=== PATIENT | male | born 1990 | race African-American/Black ===

== ENCOUNTER 2023-01-17 20:26 | Emergency (ER) | payer MEDICAID, SELFPAY ==
--- NOTE | ~2023-01-17 | XR_ITS ---
Clinical Indication: Chest pain PA and lateral views of the chest: Comparison: None Findings: The lungs are clear, without evidence of focal consolidation or pleural effusion. Cardiome diastinal silhouette is within normal limits. Bones and soft tissues are unremarkable. Impression: Normal chest. Reviewed, dictated and finalized at location . Impression: Normal chest.
--- NOTE | 2023-01-17 20:29 | ECG_ITS ---
Measurements Intervals [place] Rate: 58 P: 70 [place]: 214 QRS: 71 QRSD: 87 T: 50 QT: 361 QTc: 357 Interpretive Statements SINUS BRADYCARDIA WITH FIRST DEGREE AV BLOCK BORDERLINE ECG NO PREVIOUS ECG AVAILABLE FOR COMPARISON Electronically Signed On 01-17-2023 20:44:31 CDT by Angel Luis Robbins D.O.
[2023-01-17 20:34] VITALS: BP 123/76; PULSE 63; RESP 16; TEMP 36.6; O2SAT 100
[2023-01-17 20:44] LABS: Basophils Percent Auto 0.4 % (0.2-1.2); Eosinophils Percent Auto 0.4 % (0-4.4); Hematocrit 39.8 % (42.0-52.0); Hemoglobin 13.9 g/dL (14.0-18.0); Lymphocytes Absolute Auto 2.08 K/mm3 (0.9-3.2); Lymphocytes Percent Auto 46.5 % (18.3-44.2); Mean Corpuscular HGB Conc 34.9 g/dl (32-36); Mean Corpuscular Hemoglobin 30.5 pg (26-34); Mean Corpuscular Volume 87.3 fl (80-100); Mean Platelet Volume 9.1 fl (7.4-10.4); Monocytes Absolute Auto 0.4 K/mm3 (0.1-0.6); Monocytes Percent Auto 8.1 % (2.6-8.5); Neutrophils Percent Auto 44.6 % (45.5-73.1); Platelet Count Result 225 k/mm3 (150-375); Red Blood Count 4.56 M/mm3 (4.6-6.20); Red Cell Distribution Width 11.8 % (11.5-14.5); White Blood Count 4.5 K/mm3 (4.5-10.0)
[2023-01-17 20:53] LABS: Alanine Aminotransferase 20 U/L (6-50); Albumin Level 4.8 g/dL (3.5-5.1); Alkaline Phosphatase 41 U/L (38-126); Anion Gap 7 mmol/L (8-16); Aspartate Amino Transferase 26 U/L (17-59); Bilirubin,Total 0.6 mg/dL (0.2-1.3); Blood Urea Nitrogen 11 mg/dL (9-20); Calcium 9.2 mg/dL (8.4-10.2); Carbon Dioxide 28 mmol/L (22-30); Chloride 101 mmol/L (98-107); Estimated CRCL calculation 93 ml/min; Estimated Glomerular Filt Rate > 60; Glucose 102 mg/dL (65-110); INR 1.1; Lipase 80 U/L (23-300); Prothrombin Time 14.1 Seconds (11.1-14.7); Sodium 136 mmol/L (137-145)
[2023-01-17 20:54] LABS: Partial Thromboplastin Time 26.8 SECONDS (22.3-36.8)
[2023-01-17 21:05] LABS: Troponin I < 0.012 ng/mL (0.000-0.034)
--- NOTE | 2023-01-17 23:51 | ED.SYNCOPE ---
HPI - Syncope General Chief Complaint: Syncope Stated Complaint: lightheaded and dizzy episodes. Time Seen by Provider: 01/17/23 23:37 History of Present Illness HPI narrative: Patient is a 32-year-old male here for evaluation of multiple medical complaints. Notes that over the past 3 months after his long-term relationship ended abruptly he has had numerous episodes of lightheadedness, abdominal numbness, feeling off , numbness and tingling in his extremities. He has presented to numerous outside hospitals for these complaints and was admitted to hospital in [place] for several days where he had cardiac testing, CT brain and MRI. He reported that these have been reassuring, and the only abnormality that they have found is a first-degree AV block on his ECG. Patient is not having any chest pain or syncope. He has never been told that he has had anxiety in the past. No nausea or vomiting. Related Data Allergies Allergy/AdvReac Type Severity Reaction Status Date / Time No Known Allergies Allergy Verified 01/17/23 20:26 Review of Systems Review of Systems: All systems reviewed & are unremarkable except as noted in HPI and below Exam Narrative: APPEARANCE: Well appearing, no pain in distress, well-nourished. Head: Normocephalic and atraumatic. EYES: PERRLA/EOMI, conjunctivae clear NOSE: No nasal drainage EARS: External ear normal in appearance THROAT: Oropharynx is clear. Mucous membranes are moist. NECK: Supple. No adenopathy, no masses. RESPIRATORY: Airway patent, respirations nonlabored. Clear to auscultation bilaterally, no rales, rhonchi, wheezing. CARDIOVASCULAR: Regular rate and rhythm without murmurs, rubs, or gallops. ABDOMINAL: Normoactive bowel sounds. Soft, nontender, nondistended. No rebound tenderness or guarding. MUSCULOSKELETAL: Extremities are warm and well-perfused. Moves all extremities well. No edema. NEURO: Normal speech. No focal neurologic deficits. SKIN: Skin is warm and dry. No rashes. PSYCHIATRIC: Normal affect/mood. Course Vital Signs Vital signs: Vital Signs Temperature 97.8 F 01/17/23 20:34 Pulse Rate 63 01/17/23 20:34 Respiratory Rate 16 01/17/23 20:34 Blood Pressure 123/76 01/17/23 20:34 Pulse Oximetry 100 01/17/23 20:34 Oxygen Delivery Room Air 01/17/23 20:34 Temperature 98 F 01/18/23 01:24 Pulse Rate 55 L 01/18/23 01:24 Respiratory Rate 20 01/18/23 01:24 Blood Pressure 123/79 01/18/23 01:24 Pulse Oximetry 99 01/18/23 01:24 Oxygen Delivery Room Air 01/17/23 20:34 MDM - Syncope MDM Narrative Medical decision making narrative: 32-year-old male here for evaluation of multiple medical complaints as per HPI, numerous of which I feel could be contributed to anxiety especially given his normal work-ups in the past, nontoxic appearance and normal vital signs. His neurologic exam is normal. Basic labs, EKG, chest x-ray are normal. Orthostats are negative. Patient was given small dose of Ativan with improvement of his symptoms. He will be discharged home with primary care follow-up. Return precautions were discussed and he voiced understanding. Lab Data 01/17/23 20:35 01/17/23 20:35 Labs: Lab Results 01/17/23 01/17/23 01/17/23 Range/Units 20:35 20:35 20:35 WBC 4.5 (4.5-10.0) K/mm3 RBC 4.56 L (4.6-6.20) M/mm3 Hgb 13.9 L (14.0-18.0) g/dL Hct 39.8 L (42.0-52.0) % MCV 87.3 (80-100) fl MCH 30.5 (26-34) pg MCHC 34.9 (32-36) g/dl RDW 11.8 (11.5-14.5) % Plt Count 225 (150-375) k/mm3 MPV 9.1 (7.4-10.4) fl Immature Gran % (Auto) 0.0 (0-0.5) % Neut % (Auto) 44.6 L (45.5-73.1) % Lymph % (Auto) 46.5 H (18.3-44.2) % [place] % (Auto) 8.1 (2.6-8.5) % Eos % (Auto) 0.4 (0-4.4) % Baso % (Auto) 0.4 (0.2-1.2) % Lymph # (Auto) 2.08 (0.9-3.2) K/mm3 [place] # (Auto) 0.4 (0.1-0.6) K/mm3 Eos # (Auto) 0.0 (0-0.3) K/mm3 Baso # (Auto) 0.0 (0.0
[2023-01-18] VITALS: BP 125/80; PULSE 55
[2023-01-18 00:02] VITALS: BP 136/80; PULSE 75
[2023-01-18 00:05] VITALS: BP 126/86; PULSE 74
[2023-01-18] MEDS: LORazepam (*CRX) 0.5 MG TABLET PO (00:08)
[2023-01-18 01:24] VITALS: BP 123/79; PULSE 55; RESP 20; TEMP 36.6; O2SAT 99
== END 2023-01-18 01:25 | disposition home or self-care (01) ==
PROVIDERS: Emergency Medicine; Emergency Provider Physician Assistant
DX: F41.9 Anxiety disorder, unspecified (principal)
CPT/HCPCS: 36415; 71046; 80053; 83690; 84484; 85025; 85610; 85730; 93005; 99283; A9270

== ENCOUNTER 2023-02-02 13:09 | Emergency (ER) | payer MEDICAID, SELFPAY ==
[2023-02-02] VITALS (15 sets, daily range): BP systolic 110–126; BP diastolic 66–76; PULSE 42–60; RESP 12–20; TEMP 36.6; O2SAT 100
--- NOTE | ~2023-02-02 | XR_ITS ---
Clinical Indication: Chest pain PA and lateral views of the chest: Comparison: 01/17/2023 Findings: The lungs are clear, without evidence of focal consolidation or pleural effusion. Cardiome diastinal silhouette is within normal limits. Bones and soft tissues are unremarkable. Impression: Normal chest. Reviewed, dictated and finalized at location . Impression: Normal chest.
--- NOTE | 2023-02-02 13:10 | ECG_ITS ---
Measurements Intervals [place] Rate: 47 P: 64 [place]: 201 QRS: 66 QRSD: 90 T: 47 QT: 363 QTc: 323 Interpretive Statements SINUS BRADYCARDIA BORDERLINE AV CONDUCTION DELAY ABNORMAL ECG COMPARISON TO PRIOR ECG 01-17-23 20:31 HEART RATE HAS DECREASED Electronically Signed On 02-02-2023 13:29:19 CDT by Angel Luis Robbins D.O.
[2023-02-02 13:26] LABS: Basophils Percent Auto 0.5 % (0.2-1.2); Eosinophils Percent Auto 0.5 % (0-4.4); Hematocrit 40.5 % (42.0-52.0); Hemoglobin 13.8 g/dL (14.0-18.0); Lymphocytes Absolute Auto 1.72 K/mm3 (0.9-3.2); Lymphocytes Percent Auto 46.7 % (18.3-44.2); Mean Corpuscular HGB Conc 34.1 g/dl (32-36); Mean Corpuscular Hemoglobin 30.3 pg (26-34); Mean Platelet Volume 9.4 fl (7.4-10.4); Monocytes Absolute Auto 0.3 K/mm3 (0.1-0.6); Monocytes Percent Auto 7.3 % (2.6-8.5); Neutrophils Absolute Auto 1.7 K/mm3 (1.3-6.7); Platelet Count Result 223 k/mm3 (150-375); Red Blood Count 4.55 M/mm3 (4.6-6.20); Red Cell Distribution Width 11.8 % (11.5-14.5); White Blood Count 3.7 K/mm3 (4.5-10.0)
[2023-02-02 13:36] LABS: Alanine Aminotransferase 17 U/L (6-50); Albumin Level 5.1 g/dL (3.5-5.1); Alkaline Phosphatase 37 U/L (38-126); Anion Gap 9 mmol/L (8-16); Aspartate Amino Transferase 24 U/L (17-59); Bilirubin,Total 0.5 mg/dL (0.2-1.3); Blood Urea Nitrogen 11 mg/dL (9-20); Calcium 9.2 mg/dL (8.4-10.2); Carbon Dioxide 29 mmol/L (22-30); Chloride 101 mmol/L (98-107); Estimated CRCL calculation 107 ml/min; Estimated Glomerular Filt Rate > 60; Glucose 94 mg/dL (65-110); Lipase 150 U/L (23-300); Potassium 4.2 mmol/L (3.4-5.0); Prothrombin Time 13.1 Seconds (11.1-14.7); Sodium 139 mmol/L (137-145)
[2023-02-02 13:37] LABS: Partial Thromboplastin Time 24.2 SECONDS (22.3-36.8)
[2023-02-02 13:48] LABS: Troponin I < 0.012 ng/mL (0.000-0.034)
[2023-02-02] MEDS: ASPIRIN 81 MG CHEWABLE TABLET 324 MG PO (15:39)
[2023-02-02 16:49] LABS: Troponin I < 0.012 ng/mL (0.000-0.034)
--- NOTE | 2023-02-02 17:26 | ED.GENADULT ---
HPI - General Adult General Chief complaint: Chest Pain Stated complaint: sharp chest pains Time Seen by Provider: 02/02/23 15:24 History of Present Illness HPI narrative: 32-year-old male presented to the emergency department for evaluation of chest pain. Patient states that earlier today he was at rest at his desk when he had onset of a substernal chest pressure. Patient states the pain lasted approximately 5 minutes. Patient states the pain did radiate into his back. Patient states that the symptoms resolved but then he did have some lightheadedness when he was sitting on the toilet. Patient presented to the emergency department for further work-up. Patient reports he has had symptoms like this intermittently since last few months. Patient states he is otherwise fairly healthy patient states he has never had any of the symptoms with exertion all while working out. Patient did recently have follow-up with cardiology and is scheduled for a tilt table, event monitor and an echocardiogram. Patient does have follow-up scheduled with GI and neurology as well. At time of evaluation patient states that all of his symptoms are resolved and patient is resting comfortably. Related Data Home Medications Medication Instructions Recorded Confirmed No Home Medications 02/02/23 02/02/23 Allergies Allergy/AdvReac Type Severity Reaction Status Date / Time No Known Allergies Allergy Verified 02/02/23 15:17 Review of Systems Review of Systems: All systems reviewed & are unremarkable except as noted in HPI and below Exam Narrative: APPEARANCE: Well appearing, no pain, no distress, well-nourished. HEAD: normocephalic, atraumatic. EYES: PERRLA/EOMI, conjunctivae clear. NOSE: Normal no drainage NECK: Supple. No adenopathy, no masses. RESPIRATORY: Airway patent, respirations nonlabored. Clear to auscultation bilaterally, no rales, rhonchi, wheezing. CARDIOVASCULAR: Regular rate and rhythm without murmurs rubs or gallops. ABDOMINAL: Soft, nontender, nondistended, normal bowel sounds MUSCULOSKELETAL: Moves all extremities. Strength/ROM intact, No edema, No calf tenderness. NEURO: Alert. Cranial nerves II through XII intact. Grossly intact SKIN: Warm, dry. Normal Color Course Course Emergency Course: Differential diagnosis for patient's symptoms include ACS, pneumonia, pneumothorax, gastritis, esophagitis. Patient did feel improved. Patient is afebrile with no leukocytosis. Patient's chest x-ray showed normal chest. EKG showed sinus bradycardia with borderline AV conduction delay. Otherwise normal EKG. Patient was updated on the results of his work-up. Patient does have follow-up scheduled with GI neurology and does have outpatient cardiac testing. Patient was comfortable with the plan for discharge and close follow-up. Vital Signs Vital signs: Vital Signs Temperature 97.9 F 02/02/23 13:12 Pulse Rate 50 L 02/02/23 13:12 Respiratory Rate 16 02/02/23 13:12 Blood Pressure 126/76 02/02/23 13:12 Pulse Oximetry 100 02/02/23 13:12 Oxygen Delivery Room Air 02/02/23 13:12 Temperature 97.9 F 02/02/23 13:12 Pulse Rate 56 L 02/02/23 17:46 Respiratory Rate 20 02/02/23 17:46 Blood Pressure 110/75 02/02/23 17:46 Pulse Oximetry 100 02/02/23 17:46 Oxygen Delivery Room Air 02/02/23 15:17 Medical Decision Making Vital Signs Vital Signs: Vital Signs Temperature 97.9 F 02/02/23 13:12 Pulse Rate 50 L 02/02/23 13:12 Respiratory Rate 16 02/02/23 13:12 Blood Pressure 126/76 02/02/23 13:12 Pulse Oximetry 100 02/02/23 13:12 Oxygen Delivery Room Air 02/02/23 13:12 Temperature 97.9 F 02/02/23 13:12 Pulse Rate 56 L 02/02/23 17:46 Respiratory Rate 20 02/02/23 17:46 Blood Pressure 110/75 02/02/23 17:46 Pulse Oximetry 100 02/02/23 17:46 Oxygen Delivery Room Air 02/02/23 15:17 Lab Data Lab results reviewed: Yes I reviewed the patient's lab results.
== END 2023-02-02 17:47 | disposition home or self-care (01) ==
PROVIDERS: Emergency Provider Emergency Medicine
DX: R07.89 Other chest pain (principal)
CPT/HCPCS: 36415; 71046; 80053; 83690; 84484; 85025; 85610; 85730; 93005; 99284; A9270

== ENCOUNTER 2023-05-23 10:09 | Outpatient (CLI) | payer OTHER, SELFPAY ==
--- NOTE | ~2023-05-23 | XR_ITS ---
XR cervical spine 4-5V DATE: 05/23/2023 10:24 INDICATION: Neck pressure and tingling TECHNIQUE: AP, open-mouth, lateral, swimmer views COMPARISON: None FINDINGS: C1 and C2 are normally aligned and the odontoid process is intact. No fracture or dislocati on or locked facet or prevertebral soft tissue swelling. Cervical interspaces are preserved. IMPRESSION: Negative Reviewed, dictated and finalized at location A. IMPRESSION: Negative
== END 2023-05-23 10:10 | disposition home or self-care (01) ==
LOC: ANHIMG 10:13
PROVIDERS: PCP Emergency Medicine; Visit Provider Emergency Medicine
DX: R20.2 Paresthesia of skin (principal)
CPT/HCPCS: 72050

== ENCOUNTER 2023-06-04 10:12 | Emergency (ER) | payer OTHER, SELFPAY ==
--- NOTE | ~2023-06-04 | XR_ITS ---
XR chest 2V DATE: 06/04/2023 10:52 INDICATION: Medial chest pain. First degree heart block TECHNIQUE: PA and lateral views COMPARISON: 02/02/2023 PA and lateral chest FINDINGS: Normal heart size. No hilar or mediastinal enlargement. No pulmonary infiltrate or consolid ation, pleural effusion or pulmonary vascular congestion or pneumothorax. Included skeletal structure s are unremarkable. IMPRESSION: Negative Reviewed, dictated and finalized at location B. IMPRESSION: Negative
--- NOTE | 2023-06-04 10:13 | ECG_ITS ---
Measurements Intervals [place] Rate: 55 P: 67 [place]: 214 QRS: 67 QRSD: 93 T: 50 QT: 364 QTc: 349 Interpretive Statements SINUS BRADYCARDIA WITH SINUS ARRHYTHMIA WITH FIRST DEGREE AV BLOCK BORDERLINE ECG COMPARED TO ECG 02/02/2023 13:12:36 HEART RATE HAS INCREASED SINUS ARRHYTHMIA NOW PRESENT FIRST DEGREE AV BLOCK NOW PRESENT Electronically Signed On 06-04-2023 19:37:43 CDT by Angel Luis Robbins D.O.
[2023-06-04 10:18] VITALS: BP 117/69; PULSE 69; RESP 16; TEMP 37; O2SAT 100
[2023-06-04 10:25] VITALS: BP 141/76; PULSE 62; RESP 14; O2SAT 100
[2023-06-04 10:26] VITALS: BP 141/76; PULSE 56; RESP 13; TEMP 36.9; O2SAT 100
[2023-06-04 10:32] VITALS: O2SAT 100
[2023-06-04 10:34] LABS: Basophils Percent Auto 0.3 % (0.2-1.2); Eosinophils Absolute Auto 0.1 K/mm3 (0-0.3); Eosinophils Percent Auto 1.7 % (0-4.4); Hematocrit 40.2 % (42.0-52.0); Hemoglobin 13.8 g/dL (14.0-18.0); Immature Granulocyte Absolute 0.01 K/mm3 (0.00-0.031); Immature Granulocyte Percent A 0.3 % (0-0.5); Lymphocytes Absolute Auto 1.72 K/mm3 (0.9-3.2); Lymphocytes Percent Auto 48.2 % (18.3-44.2); Mean Corpuscular HGB Conc 34.3 g/dl (32-36); Mean Corpuscular Hemoglobin 30.2 pg (26-34); Mean Platelet Volume 9.4 fl (7.4-10.4); Monocytes Absolute Auto 0.3 K/mm3 (0.1-0.6); Neutrophils Absolute Auto 1.5 K/mm3 (1.3-6.7); Neutrophils Percent Auto 42.5 % (45.5-73.1); Platelet Count Result 198 k/mm3 (150-375); Red Blood Count 4.57 M/mm3 (4.6-6.20); Red Cell Distribution Width 12.1 % (11.5-14.5); White Blood Count 3.6 K/mm3 (4.5-10.0)
[2023-06-04 10:45] LABS: Alanine Aminotransferase 25 U/L (6-50); Albumin Level 4.8 g/dL (3.5-5.1); Alkaline Phosphatase 34 U/L (38-126); Anion Gap 5 mmol/L (8-16); Aspartate Amino Transferase 34 U/L (17-59); Bilirubin,Total 0.5 mg/dL (0.2-1.3); Blood Urea Nitrogen 8 mg/dL (9-20); Calcium 9.1 mg/dL (8.4-10.2); Carbon Dioxide 31 mmol/L (22-30); Chloride 102 mmol/L (98-107); Estimated CRCL calculation 98 ml/min; Estimated Glomerular Filt Rate > 60; Glucose 82 mg/dL (65-110); Lipase 82 U/L (23-300); Potassium 3.7 mmol/L (3.4-5.0); Sodium 138 mmol/L (137-145)
[2023-06-04 10:48] LABS: Prothrombin Time 13.6 Seconds (11.1-14.7)
[2023-06-04 10:49] LABS: Partial Thromboplastin Time 24.8 SECONDS (22.3-36.8)
[2023-06-04 10:57] LABS: Troponin I < 0.012 ng/mL (0.000-0.034)
--- NOTE | 2023-06-04 11:06 | PC.NURSE ---
Patient report given to Brendon Benjamin. All questions answered and care of patient transferred.
--- NOTE | 2023-06-04 11:31 | ED.CHESTPAIN ---
HPI - Chest Pain General Chief Complaint: Chest Pain Stated Complaint: chest pain Time Seen by Provider: 06/04/23 10:24 History of Present Illness HPI narrative: This is a 32-year-old male, with no known significant past medical history, who presents to the emergency department complaining of chest pain this morning. He states the pain was sharp, substernal, lasting 5 seconds and occurred 3 times. He is not sure what may have triggered it. He does admit to exercise this morning. He denies recent trauma or travel. Related Data Home Medications Medication Instructions Recorded Confirmed No Home Medications 02/02/23 02/02/23 Allergies Allergy/AdvReac Type Severity Reaction Status Date / Time No Known Allergies Allergy Verified 02/04/23 12:20 Review of Systems Review of Systems: CONSTITUTIONAL: Denies fever, chills, or sweats. CARDIOVASCULAR: Chest pain denies palpitations, or edema. RESPIRATORY: Denies cough or dyspnea. GASTROINTESTINAL: Denies abdominal pain, nausea, vomiting, or diarrhea. GENITOURINARY: Denies dysuria or hematuria. SKIN: Denies rash or itching. MUSCULOSKELETAL: Denies back pain, joint pain, or myalgia. NEUROLOGIC: Denies headache, numbness, dizziness, or weakness. PSYCHIATRIC: Denies anxiety or depression. Exam Narrative: GENERAL: Well-developed, well-nourished, and in no acute distress. HEAD: Normocephalic, atraumatic. EYES: PERRLA and EOMI. ENT: Nares clear, no rhinorrhea or epistaxis. Mucous membranes moist. Oropharynx without tonsillar hypertrophy exudate or other lesions. NECK: Supple. No adenopathy or masses. No JVD CHEST: Clear to auscultation. No respiratory distress. No wheezes rales or rhonchi HEART: Regular rate and rhythm. No murmur heard. Normal peripheral pulses. ABDOMEN: Soft, nontender, nondistended, normal active bowel sounds. EXTREMITIES: Normal range of motion. No edema. SKIN: Warm, dry, no rash. NEURO: No focal deficits. Alert and oriented x3. PSYCH: Normal mood and affect. Course Course Emergency Course: 11:30 - Troponin negative. EKG not concerning for ischemia though demonstrates first-degree AV block. Chest x-ray unremarkable. CBC demonstrates mild anemia with hemoglobin of 13.8 that appears chronic. Chemistry is grossly unremarkable. Heart score 1. I do not suspect ACS. Will discharge with recommendation for primary care follow-up. Discussed return and emergency precautions including signs/symptoms of ACS and respiratory distress. The patient voiced understanding and is comfortable with the plan. All questions answered to his satisfaction. Vital Signs Vital signs: Vital Signs Temperature 98.6 F 06/04/23 10:18 Pulse Rate 69 06/04/23 10:18 Respiratory Rate 16 06/04/23 10:18 Blood Pressure 117/69 06/04/23 10:18 Pulse Oximetry 100 06/04/23 10:18 Oxygen Delivery Room Air 06/04/23 10:18 Temperature 98.5 F 06/04/23 10:26 Pulse Rate 57 L 06/04/23 11:44 Respiratory Rate 20 06/04/23 11:44 Blood Pressure 137/81 06/04/23 11:44 Pulse Oximetry 100 06/04/23 11:44 Oxygen Delivery Room Air 06/04/23 10:32 MDM - Chest Pain MDM Narrative Medical decision making narrative: Plan: Labs, EKG, imaging, troponin, reassess Differential Diagnosis Differential diagnosis: Likely pneumothorax, atypical chest pain, costochondritis and other (ACS, metabolic abnormality, other) Lab Data 06/04/23 10:28 06/04/23 10:28 Labs: Lab Results 06/04/23 Range/Units 10:28 WBC 3.6 L (4.5-10.0) K/mm3 RBC 4.57 L (4.6-6.20) M/mm3 Hgb 13.8 L (14.0-18.0) g/dL Hct 40.2 L (42.0-52.0) % MCV 88.0 (80-100) fl MCH 30.2 (26-34) pg MCHC 34.3 (32-36) g/dl RDW 12.1 (11.5-14.5) % Plt Count 198 (150-375) k/mm3 MPV 9.4 (7.4-10.4) fl Immature Gran % (Auto) 0.3 (0-0.5) % Neut % (Auto) 42.5 L (45.5-73.1) % Lymph % (Auto) 48.2 H (18.3-44.2) % [place] % (Auto) 7.0 (2.6-8.5)
[2023-06-04 11:44] VITALS: BP 137/81; PULSE 57; RESP 20; O2SAT 100
== END 2023-06-04 11:45 | disposition home or self-care (01) ==
PROVIDERS: Emergency Provider Preventive Medicine Aerospace Medicine; PCP Emergency Medicine
DX: M94.0 Chondrocostal junction syndrome [Tietze] (principal)
CPT/HCPCS: 36415; 71046; 80053; 83690; 84484; 85025; 85610; 85730; 93005; 99284

== ENCOUNTER 2023-08-23 16:09 | Emergency (ER) | payer OTHER, SELFPAY ==
--- NOTE | ~2023-08-23 | XR_ITS ---
EXAMINATION: XR chest 2V DATE: 08/23/2023 16:33 INDICATION: Chest pain TECHNIQUE: PA and lateral views of the chest were obtained. COMPARISON: Chest radiograph dated 06/04/2023 FINDINGS: The lungs remain clear with no focal airspace opacities, pulmonary edema, pleural effusion or pneumot horax. The cardiomediastinal silhouette is normal. Mild thoracic spondylosis. IMPRESSION: 1. No acute cardiopulmonary disease. Reviewed, dictated and finalized at location A.
--- NOTE | 2023-08-23 16:11 | ECG_ITS ---
Measurements Intervals [place] Rate: 57 P: 61 [place]: 210 QRS: 62 QRSD: 90 T: 51 QT: 356 QTc: 349 Interpretive Statements SINUS BRADYCARDIA WITH SINUS ARRHYTHMIA WITH FIRST DEGREE AV BLOCK BORDERLINE ECG COMPARED TO ECG 06/04/2023 10:16:36 NO SIGNIFICANT CHANGES Electronically Signed On 08-23-2023 17:29:09 CDT by Ck Naranjo M.D.
[2023-08-23 16:33] LABS: Basophils Percent Auto 0.5 % (0.2-1.2); Eosinophils Percent Auto 0.5 % (0-4.4); Hematocrit 39.1 % (42.0-52.0); Hemoglobin 12.7 g/dL (14.0-18.0); Immature Granulocyte Absolute 0.01 K/mm3 (0.00-0.031); Immature Granulocyte Percent A 0.2 % (0-0.5); Lymphocytes Absolute Auto 1.73 K/mm3 (0.9-3.2); Lymphocytes Percent Auto 42.3 % (18.3-44.2); Mean Corpuscular HGB Conc 32.5 g/dl (32-36); Mean Corpuscular Volume 92.2 fl (80-100); Mean Platelet Volume 9.4 fl (7.4-10.4); Monocytes Absolute Auto 0.3 K/mm3 (0.1-0.6); Monocytes Percent Auto 7.6 % (2.6-8.5); Neutrophils Percent Auto 48.9 % (45.5-73.1); Platelet Count Result 205 k/mm3 (150-375); Red Blood Count 4.24 M/mm3 (4.6-6.20); Red Cell Distribution Width 12.5 % (11.5-14.5); White Blood Count 4.1 K/mm3 (4.5-10.0)
[2023-08-23 16:36] VITALS: BP 117/70; PULSE 62; RESP 16; TEMP 36.7; O2SAT 100
[2023-08-23 16:39] LABS: Alanine Aminotransferase 16 U/L (6-50); Albumin Level 4.6 g/dL (3.5-5.1); Alkaline Phosphatase 30 U/L (38-126); Anion Gap 9 mmol/L (8-16); Aspartate Amino Transferase 27 U/L (17-59); Bilirubin,Total 0.5 mg/dL (0.2-1.3); Blood Urea Nitrogen 12 mg/dL (9-20); Carbon Dioxide 27 mmol/L (22-30); Chloride 103 mmol/L (98-107); Estimated Glomerular Filt Rate > 60; Glucose 91 mg/dL (65-110); Lipase 104 U/L (23-300); Potassium 3.8 mmol/L (3.4-5.0); Sodium 139 mmol/L (137-145)
[2023-08-23 16:43] LABS: Prothrombin Time 13.9 Seconds (11.1-14.7)
[2023-08-23 16:44] LABS: Partial Thromboplastin Time 26.8 SECONDS (22.3-36.8)
[2023-08-23 16:50] LABS: Troponin I < 0.012 ng/mL (0.000-0.034)
[2023-08-23 19:57] LABS: Troponin I < 0.012 ng/mL (0.000-0.034)
--- NOTE | 2023-08-23 20:54 | ED.CHESTPAIN ---
HPI - Chest Pain General Chief Complaint: Chest Pain Stated Complaint: chest pain Time Seen by Provider: 08/23/23 19:03 History of Present Illness HPI narrative: Patient presents the emergency department with multiple complaints ongoing for the past few months. He has had an echo in stress test completed by cardiology. Also was seen by GI and had endoscopy completed. Symptoms described as tingling from his head into his neck, abdominal discomfort, episodes of sharp chest discomfort, feeling like he is weak. He was feeling better until recently. He an appointment with his primary care provider tomorrow. His primary care provider had started him on vitamin D. He stopped a few days ago. Symptoms have returned since stopping the vitamin D. He had blood work completed that showed his white blood cell count was low and he is very concerned about this Related Data Home Medications Medication Instructions Recorded Confirmed No Home Medications 02/02/23 02/02/23 Allergies Allergy/AdvReac Type Severity Reaction Status Date / Time No Known Allergies Allergy Verified 08/23/23 19:29 Review of Systems Review of Systems: ROS negative except what is documented in the HPI Exam Narrative: GENERAL: Well-appearing, well-nourished, and in no acute distress. HEAD: Normocephalic, atraumatic. EYES: PERRLA and EOMI. ENT: Nares clear, no rhinorrhea or epistaxis. Mucous membranes moist. NECK: Supple. CHEST: Clear to auscultation. No respiratory distress. HEART: Regular rate and rhythm. ABDOMEN: Soft, nontender, nondistended. EXTREMITIES: Normal range of motion. No edema. SKIN: Warm, dry, no rash. NEURO: No focal deficits. Alert and oriented x3. PSYCH: Normal mood and affect. Course Course Emergency Course: Patient has had an extensive work-up by multiple different specialists for his symptoms. Symptoms are nonspecific. He is a young healthy male. I have reassured him is much as possible. Also advised that if symptoms continue might need to be seen by subspecialists as rheumatology and neurology. He has a follow-up appointment with his primary care tomorrow. Will discharge to home Vital Signs Vital signs: Vital Signs Temperature 36.7 C 08/23/23 16:36 Pulse Rate 62 08/23/23 16:36 Respiratory Rate 16 08/23/23 16:36 Blood Pressure 117/70 08/23/23 16:36 Pulse Oximetry 100 08/23/23 16:36 Oxygen Delivery Room Air 08/23/23 16:36 Temperature 36.7 C 08/23/23 16:36 Pulse Rate 62 08/23/23 16:36 Respiratory Rate 16 08/23/23 16:36 Blood Pressure 117/70 08/23/23 16:36 Pulse Oximetry 100 08/23/23 16:36 Oxygen Delivery Room Air 08/23/23 19:27 MDM - Chest Pain Lab Data 08/23/23 16:23 08/23/23 16:23 Labs: Lab Results 08/23/23 08/23/23 Range/Units 16:23 19:22 WBC 4.1 L (4.5-10.0) K/mm3 RBC 4.24 L (4.6-6.20) M/mm3 Hgb 12.7 L (14.0-18.0) g/dL Hct 39.1 L (42.0-52.0) % MCV 92.2 (80-100) fl MCH 30.0 (26-34) pg MCHC 32.5 (32-36) g/dl RDW 12.5 (11.5-14.5) % Plt Count 205 (150-375) k/mm3 MPV 9.4 (7.4-10.4) fl Immature Gran % (Auto) 0.2 (0-0.5) % Neut % (Auto) 48.9 (45.5-73.1) % Lymph % (Auto) 42.3 (18.3-44.2) % [place] % (Auto) 7.6 (2.6-8.5) % Eos % (Auto) 0.5 (0-4.4) % Baso % (Auto) 0.5 (0.2-1.2) % Lymph # (Auto) 1.73 (0.9-3.2) K/mm3 [place] # (Auto) 0.3 (0.1-0.6) K/mm3 Eos # (Auto) 0.0 (0-0.3) K/mm3 Baso # (Auto) 0.0 (0.0-0.1) K/mm3 Abs Immat Gran (auto) 0.01 (0.00-0.031) K/mm3 Absolute Neuts (auto) 2.0 (1.3-6.7) K/mm3 Absolute Nucleated RBC 0.0 (0.0-0.012) K/mm3 Nucleated RBC % 0.0 (0.0-0.2) % PT 13.9 (11.1-14.7) Seconds INR 1.0 APTT 26.8 (22.3-36.8) SECONDS Sodium 139 (137-145) mmol/L Potassium 3.8 (3.4-5.0) mmol/L Chloride 103 (98-107) mmol/L Carbon Dioxide 27 (22-30) mmol/L Anion Gap 9 (8-16) mmol/L BUN 12 (9
[2023-08-23] MEDS: ASPIRIN 81 MG CHEWABLE TABLET 324 MG PO (21:04)
== END 2023-08-23 21:07 | disposition home or self-care (01) ==
PROVIDERS: Emergency Medicine; Emergency Provider Emergency Medicine; PCP Emergency Medicine
DX: R20.2 Paresthesia of skin (principal); R07.89 Other chest pain; R10.9 Unspecified abdominal pain; R53.1 Weakness; R00.1 Bradycardia, unspecified; I44.0 Atrioventricular block, first degree
CPT/HCPCS: 36415; 71046; 80053; 83690; 84484; 85025; 85610; 85730; 93005; 99284; A9270

== ENCOUNTER 2023-09-13 12:08 | Outpatient (CLI) | payer OTHER, SELFPAY ==
[2023-09-13 12:26] LABS: Hematocrit 42.8 % (42.0-52.0); Hemoglobin 14.5 g/dL (14.0-18.0); Immature Granulocyte Absolute 0.01 K/mm3 (0.00-0.031); Immature Granulocyte Percent A 0.3 % (0-0.5); Lymphocytes Percent Auto 45.3 % (18.3-44.2); Mean Corpuscular HGB Conc 33.9 g/dl (32-36); Mean Corpuscular Hemoglobin 30.6 pg (26-34); Mean Corpuscular Volume 90.3 fl (80-100); Mean Platelet Volume 9.5 fl (7.4-10.4); Monocytes Absolute Auto 0.2 K/mm3 (0.1-0.6); Monocytes Percent Auto 6.8 % (2.6-8.5); Neutrophils Absolute Auto 1.4 K/mm3 (1.3-6.7); Neutrophils Percent Auto 45.6 % (45.5-73.1); Platelet Count Result 247 k/mm3 (150-375); Red Blood Count 4.74 M/mm3 (4.6-6.20); White Blood Count 3.1 K/mm3 (4.5-10.0)
[2023-09-13 17:02] LABS: Iron 107 ug/dL (49-181)
[2023-09-13 17:06] LABS: Alanine Aminotransferase 17 U/L (6-50); Alkaline Phosphatase 33 U/L (38-126); Anion Gap 7 mmol/L (8-16); Aspartate Amino Transferase 28 U/L (17-59); Bilirubin,Total 0.6 mg/dL (0.2-1.3); Blood Urea Nitrogen 8 mg/dL (9-20); Calcium 9.6 mg/dL (8.4-10.2); Carbon Dioxide 30 mmol/L (22-30); Chloride 101 mmol/L (98-107); Estimated Glomerular Filt Rate > 60; Glucose 89 mg/dL (65-110); Lactate Dehydrogenase 181 U/L (120-246); Sodium 138 mmol/L (137-145)
[2023-09-13 17:12] LABS: Percent Iron Saturation 31 % (20-50)
[2023-09-13 18:13] LABS: Folic Acid 12.1 ng/mL (2.76->20)
[2023-09-16 11:54] LABS: Methylmalonic Acid 144 nmol/L (87-318)
[2023-09-16 14:57] LABS: Hematocrit 43.3 % (38.5-50.0); Hemoglobin 14.6 g/dL (13.2-17.1); MCH 30.4 pg (27.0-33.0); MCV 90.2 fL (80.0-100.0); RDW 12.7 % (11.0-15.0)
[2023-09-17 15:39] LABS: Soluble Transferrin Receptor 0.89 mg/L (0.76-1.76)
== END 2023-09-13 12:09 | disposition home or self-care (01) ==
LOC: ANHLAB 12:10
PROVIDERS: Nurse Practitioner Family; PCP Emergency Medicine; Visit Provider Internal Medicine Hematology & Oncology
DX: D64.9 Anemia, unspecified (principal)
CPT/HCPCS: 36415; 80053; 82607; 82728; 82746; 83021; 83540; 83550; 83615; 83921; 84238; 84443; 85025; 86038

== ENCOUNTER 2023-09-29 09:58 | Outpatient (CLI) | payer OTHER, SELFPAY ==
--- NOTE | ~2023-09-29 | US_ITS ---
US abdomen complete EXAMINATION: US Abdomen Complete INDICATION: Leukopenia PROCEDURE: Realtime High Resolution abdomen ultrasound. COMPARISON: No prior studies for comparison FINDINGS: Gallbladder within normal limits. No gallstones, pericholecystic fluid, gallbladder wall t hickening or biliary dilatation. Common bile duct measures 3 mm. Liver echotexture within normal limits without focal mass. Pancreas within normal limits. Pancreati c tail is obscured by bowel gas. Spleen is unremarkeable. Renal echotexture is within normal limits bilaterally without hydronephrosis, contour deforming mass or renal stone. Right kidney measures 10.3 cm. Left kidney measures 9.8 cm. Visualized aspects of the aorta and IVC are within normal limits. Portal vein is patent. No sonograph ic Orta's sign indicated by the technologist. IMPRESSION: 1: Normal abdominal ultrasound. Reviewed, dictated and finalized at location B. [employer]
== END 2023-09-29 09:59 | disposition home or self-care (01) ==
LOC: ANHIMG 10:00
PROVIDERS: PCP Emergency Medicine; Visit Provider Internal Medicine Hematology & Oncology
DX: D72.819 Decreased white blood cell count, unspecified (principal)
CPT/HCPCS: 76700

== ENCOUNTER 2023-10-13 09:58 | Outpatient (CLI) | payer OTHER, SELFPAY ==
[2023-10-13 17:28] LABS: Immunoglobulin A 186 mg/dL (70-400); Immunoglobulin G 1275 mg/dL (700-1600); Immunoglobulin M 148 mg/dL (40-230)
== END 2023-10-13 09:59 | disposition home or self-care (01) ==
LOC: ANHLAB 10:01
PROVIDERS: PCP Emergency Medicine; Visit Provider Internal Medicine Hematology & Oncology
DX: D64.9 Anemia, unspecified (principal)
CPT/HCPCS: 36415; 82784

== ENCOUNTER 2024-01-25 10:52 | Outpatient (CLI) | payer OTHER, SELFPAY ==
[2024-01-25 11:12] LABS: Basophils Percent Auto 0.5 % (0.2-1.2); Eosinophils Absolute Auto 0.1 K/mm3 (0-0.3); Eosinophils Percent Auto 1.3 % (0-4.4); Hematocrit 40.1 % (42.0-52.0); Hemoglobin 13.6 g/dL (14.0-18.0); Immature Granulocyte Absolute 0.01 K/mm3 (0.00-0.031); Immature Granulocyte Percent A 0.3 % (0-0.5); Lymphocytes Absolute Auto 1.57 K/mm3 (0.9-3.2); Lymphocytes Percent Auto 39.8 % (18.3-44.2); Mean Corpuscular HGB Conc 33.9 g/dl (32-36); Mean Corpuscular Hemoglobin 30.3 pg (26-34); Mean Corpuscular Volume 89.3 fl (80-100); Mean Platelet Volume 9.7 fl (7.4-10.4); Monocytes Absolute Auto 0.3 K/mm3 (0.1-0.6); Monocytes Percent Auto 6.6 % (2.6-8.5); Neutrophils Percent Auto 51.5 % (45.5-73.1); Platelet Count Result 213 k/mm3 (150-375); Red Blood Count 4.49 M/mm3 (4.6-6.20); Red Cell Distribution Width 12.2 % (11.5-14.5); White Blood Count 3.9 K/mm3 (4.5-10.0)
[2024-01-25 17:04] LABS: Anion Gap 6 mmol/L (8-16); Blood Urea Nitrogen 13 mg/dL (9-20); Calcium 9.5 mg/dL (8.4-10.2); Carbon Dioxide 30 mmol/L (22-30); Chloride 104 mmol/L (98-107); Estimated Glomerular Filt Rate > 60; Glucose 82 mg/dL (65-110); Potassium 4.2 mmol/L (3.4-5.0); Sodium 140 mmol/L (137-145)
[2024-01-25 17:30] LABS: Immunoglobulin A 191 mg/dL (70-400); Immunoglobulin G 1231 mg/dL (700-1600); Immunoglobulin M 144 mg/dL (40-230)
[2024-01-25 18:11] LABS: Folic Acid 13.5 ng/mL (2.76->20)
[2024-01-27 12:08] LABS: Kappa\\Lambda Light Chains 1.46 (0.26-1.65); Lambda Light Chain 10.1 mg/L (5.7-26.3)
[2024-01-27 14:39] LABS: Albumin 4.5 g/dL (3.8-4.8); Alpha 1 Globulin 0.2 g/dL (0.2-0.3); Alpha 2 Globulin 0.5 g/dL (0.5-0.9); Beta 1 Globulin 0.5 g/dL (0.4-0.6); Gamma Globulin 1.1 g/dL (0.8-1.7); Protein, Total 7.2 g/dL (6.1-8.1)
== END 2024-01-25 10:53 | disposition home or self-care (01) ==
LOC: ANHLAB 10:54
PROVIDERS: PCP Emergency Medicine; Visit Provider Internal Medicine Hematology & Oncology
DX: D72.819 Decreased white blood cell count, unspecified (principal)
CPT/HCPCS: 36415; 80048; 82607; 82746; 82784; 83883; 84155; 84165; 85025